=== PATIENT | male | born 1985 | race African-American/Black ===

== ENCOUNTER 2017-11-03 09:34 | Emergency (ER) | payer SELFPAY ==
[2017-11-03] MEDS ORDERED: IPRATROPIUM/ALBUTEROL 0.5-2.5 MG/3 ML AMPUL NEB ONE (09:50)
[2017-11-03] MEDS ORDERED: DEXAMETHASONE SOD PHOS INJ 10 MG/1 ML VIAL IM ONE (09:50)
--- NOTE | 2017-11-03 09:55 | ER Document Report ---
HPI - HPI Pain Level: 4 Notes: Patient is a 32-year-old male with a previous history of asthma who presents to the ED complaining of dry nonproductive cough, wheezing, body ache, nasal congestion/discharge 1 day. Patient states that he also has soreness in his chest during a cough, but is able to ambulate without any chest pain or dyspnea on exertion. Patient has no significant cardiopulmonary medical history otherwise. Patient has not taken any medicines for symptoms. He is still eating and drinking without difficulties. He is urinating on and having normal bowel movements. Patient does admit to smoking cigarettes and marijuana, but denies any IV drug use. Denies any headache, fever, neck pain, sore throat, chest pain, palpitations, syncope, abdominal pain, nausea/vomiting/diarrhea, urinary retention, dysuria, hematuria, or rash. - ROS Systems Reviewed and Negative: Yes All other systems reviewed and negative - REPRODUCTIVE Reproductive: DENIES: : Past Medical History - Social History Smoking Status: Current Every Day Smoker Family History: Reviewed & Not Pertinent Pulmonary Medical History: Reports: Hx Asthma Past Surgical History: Reports: Hx Abdominal Surgery - hernia repair - Immunizations Immunizations up to date: No Hx Diphtheria, Pertussis, Tetanus Vaccination: Yes Vertical Provider Document - CONSTITUTIONAL Agree With Documented VS: Yes Notes: PHYSICAL EXAMINATION: GENERAL: Well-appearing, well-nourished and in no acute distress. A&Ox4. Answers questions appropriately. Moves comfortably w/o notable distress HEAD: Atraumatic, normocephalic. EYES: Pupils equal round and reactive to light, extraocular movements intact, sclera anicteric, conjunctiva are normal. ENT: EAC clear b/l. TM's intact b/l without erythema, fluid, or perforation. Nares patent and with clear discharge. oropharynx no erythema without exudates. No tonsilar hypertrophy without erythema or exudate. No palatine shift. Uvula midline. No tongue protrusion. No drooling, hoarseness, or airway compromise. Moist mucous membranes. No sinus tenderness. NECK: Normal range of motion, supple without lymphadenopathy. No rigidity/ meningismus. LUNGS: Wheezing b/l. No retractions HEART: Regular rate and rhythm without murmurs, rubs, gallops. ABDOMEN: Soft, nontender, nondistended abdomen. No guarding, no rebound. No masses appreciated. Normal bowel sounds present. No CVA tenderness bilaterally. Ext: no edema. Cap refill <3 sec. NEUROLOGICAL: Normal speech, normal gait. Normal sensory, motor exams PSYCH: Normal mood, normal affect. SKIN: Warm, Dry, normal turgor, no rashes or lesions noted. - INFECTION CONTROL TRAVEL OUTSIDE OF THE [place] IN LAST 30 DAYS: No Course - Re-evaluation Re-evalutation: 11/03/17 11:01 Patient is an afebrile, well-hydrated, 32-year-old male who presents to the ED with acute URI, suspect viral. Vitals are acceptable. PE is otherwise unremarkable. Chest x-ray was unremarkable for any acute pathology. No other labs or imaging warranted at this time based on H&P. Patient has no significant cardiopulmonary or immunocompromised medical conditions aside from asthma that is mild and intermittent. Patient's lungs are clear to auscultation bilaterally status post DuoNeb treatment and Decadron without significant tachycardia, hypoxia, or tachypnea. Patient is tolerating p.o. without any difficulties. Low suspicion for any meningitis, sepsis, peritonsillar/pharyngeal abscess, respiratory compromise, severe dehydration, or other emergent systemic condition at this time. Patient is aware this condition can change from initial presentation and he needs to monitor symptoms closely. I will send him home with an inhaler and Tessalon. Conservative measures otherwise for symptoms. Recheck with your PCM in 3-5 days. Return to the ED with any worsening/concerning symptoms otherwise as reviewed in discharge. Patient is in agreement. Discharge - Discharge Clinical Impression: Acute URI Condition: Stable Disposition: HOME, SELF-CARE Instructions: Upper Respiratory Illness ([facility]) Additional Instructions: Maintain adequate fluid intake Take meds as directed tylenol/ibuprofen as needed over the counter cold medication as needed for symptoms Humidified air may help Wash your hands regularly Wear a mask when coughing F/u: with your PCM in 3-5 days for a recheck Return to the ED with any fever, worsening pain, chest pain, palpitations, syncope, worsening RAYMUNDO, neck pain/stiffness, shortness of breath, wheezing, drooling, trouble swallowing/breathing, abdominal pain, n/v/d, rash, or worsening/concerning symptoms otherwise. Prescriptions: Benzonatate [Tessalon Perle 100 mg Capsule] 100 mg PO Q8HP PRN #15 cap PRN Reason: Albuterol Sulfate [Proair HFA Inhalation Aerosol 8.5 gm MDI] 2 puff IH Q4H PRN # 1 mdi PRN Reason: Forms: Smoking Cessation Education, Elevated Blood Pressure Referrals: [facility] [Provider Group] - Follow up as needed [facility] [Provider Group] - Follow up as needed
--- NOTE | 2017-11-03 10:43 | RADIOLOGY REPORT (SQ) ---
EXAM DESCRIPTION: CHEST 2 VIEWS COMPLETED DATE/TIME: 11/03/2017 10:33 am REASON FOR STUDY: cough COMPARISON: None. EXAM PARAMETERS: NUMBER OF VIEWS: two views TECHNIQUE: Digital Frontal and Lateral radiographic views of the chest acquired. RADIATION DOSE: NA LIMITATIONS: none FINDINGS: LUNGS AND PLEURA: No opacities, masses or pneumothorax. No pleural effusion. MEDIASTINUM AND HILAR STRUCTURES: No masses or contour abnormalities. HEART AND VASCULAR STRUCTURES: Heart normal size. No evidence for failure. BONES: No acute findings. HARDWARE: None in the chest. OTHER: No other significant finding. IMPRESSION: NO ACUTE RADIOGRAPHIC FINDING IN THE CHEST. TECHNICAL DOCUMENTATION: JOB ID: [id number] [employer]- All Rights Reserved Reading location - IP/workstation name: [email or web address]
[2017-11-03 12:19] VITALS: BP 142/86
== END 2017-11-03 12:19 | disposition home or self-care (01) ==
LOC: ER 09:34
DX: J06.9 Acute upper respiratory infection, unspecified (principal); M79.1 Myalgia; F17.210 Nicotine dependence, cigarettes, uncomplicated
CPT/HCPCS: 94640; 99283; 96372; 71046; J1100; J7620

== ENCOUNTER 2018-08-01 00:36 | Emergency (ER) | payer SELFPAY ==
[2018-08-01] MEDS ORDERED: HYDROCODONE/ACETAMINOPHEN 5-325 MG (6 TAB/ER DISP) PO PRN (01:24)
[2018-08-01] MEDS ORDERED: CLINDAMYCIN HCL 150 MG CAPSULE PO ONE (01:24)
--- NOTE | 2018-08-01 01:26 | ER Document Report ---
ED General - General Chief Complaint: Dental Injury Stated Complaint: TOOTHACHE Time Seen by Provider: 08/01/18 01:20 Notes: Patient is a 32-year-old male who presents with complaint of dental pain. He says he has a history of poor dentition. He has not seen a dentist about this. He said this tooth broke approximately week ago on his forehead and very badly tonight he started having swelling into the left side of his face. No difficulty breathing or swallowing. No fevers. No other complaints at this time. TRAVEL OUTSIDE OF THE [place] IN LAST 30 DAYS: No - Related Data Allergies/Adverse Reactions: No Known Allergies Allergy (Verified 11/01/15 20:15) Past Medical History - Social History Smoking Status: Unknown if Ever Smoked Frequency of alcohol use: None Drug Abuse: None Family History: Reviewed & Not Pertinent Pulmonary Medical History: Reports: Hx Asthma Renal/ Medical History: Denies: Hx Peritoneal Dialysis Past Surgical History: Reports: Hx Abdominal Surgery - hernia repair - Immunizations Immunizations up to date: No Hx Diphtheria, Pertussis, Tetanus Vaccination: Yes Review of Systems - Review of Systems Notes: My Normal Review Basic REVIEW OF SYSTEMS: CONSTITUTIONAL : Denies fever, chills, or sweats. Denies recent illness. EENT: Dental pain NEUROLOGICAL: Denies altered mental status or loss of consciousness. Denies headache. ALL OTHER SYSTEMS REVIEWED AND NEGATIVE. Physical Exam - Vital signs Vitals: Temp Pulse Resp BP Pulse Ox 98.3 F 101 H 15 129/82 H 100 08/01/18 00:54 08/01/18 00:54 08/01/18 00:54 08/01/18 00:54 08/01/18 00:54 - Notes Notes: General Appearance: Well nourished, alert, cooperative, no acute distress, no obvious discomfort. Patient talking without hoarseness of voice. Patient tolerating secretions without difficulty. Vitals: reviewed, See vital signs table. Head: no swelling or tenderness to the head Eyes: PERRL, EOMI, Conjuctiva clear Mouth: Patient's left upper premolar is almost completely decayed and broken off. He has several dental caries but not to the extent of this particular tooth which is the one that is causing him pain. He does have some small amount of facial swelling over the left maxillary arch that is most likely related to this tooth and developing infection. No swelling below the mandible. No swelling of her lower jaw. Throat: No tonsillar inflammation, No airway obstruction, No lymphadenopathy Neck: Supple, no neck tenderness, No neck swelling Neuro: speech clear, oriented x 3, normal affect, responds appropriately to questions. Course - Re-evaluation Re-evalutation: 08/01/18 06:41 Patient will be started on clindamycin. Will be given few doses of pain medicine to go home with. I informed him he must call dentist or oral surgeon as soon as possible to make a close follow-up appointment to take care of his tooth. Patient encouraged to return to ER if he has increasing facial swelling, difficulty breathing, difficulty swallowing, fevers, or if he feels unwell. Patient agrees with plan and will be discharged home. Dictation of this chart was performed using voice recognition software; therefore, there may be some unintended grammatical errors. - Vital Signs Vital signs: Temp Pulse Resp BP Pulse Ox 98.4 F 91 18 125/78 100 08/01/18 01:37 08/01/18 01:37 08/01/18 01:37 08/01/18 01:37 08/01/18 01:37 Discharge - Discharge Clinical Impression: Dental infection Tooth fracture Qualifiers: Encounter type: initial encounter Fracture type: closed Qualified Code(s): S02.5XXA - Fracture of tooth (traumatic), initial encounter for closed fracture Condition: Good Disposition: HOME, SELF-CARE Additional Instructions: Please take the antibiotic as prescribed. I have given you a small bottle of stronger pain medicine called Crystal. Please be aware that Crystal does have Tylenol (acetaminophen) in it. Please make sure you do not take more than 4000 mg of acetaminophen a day. Do not drive or care for children after you have taken this medication they will make you sleepy and sometimes impair judgment. Please take Motrin or ibuprofen for pain. Only take the Crystal when the pain is intractable. Please call dentist immediately to make a close follow-up appointment as he will need definitive treatment through a dentist or oral surgeon to take care of your tooth. Please return to the ER if you have increasing facial swelling, fevers, difficulty breathing or swallowing, or if you feel unwell. Prescriptions: RX: Clindamycin HCl [Cleocin 150 mg Capsule] 300 mg PO Q6 #56 capsule
[2018-08-01 01:38] VITALS: BP 125/78
== END 2018-08-01 01:35 | disposition home or self-care (01) ==
LOC: ER 00:36
DX: S02.5XXA Fracture of tooth (traumatic), initial encounter for closed fracture (principal); K04.7 Periapical abscess without sinus; K08.89 Other specified disorders of teeth and supporting structures; X58.XXXA Exposure to other specified factors, initial encounter
CPT/HCPCS: 99282